=== PATIENT | female | born 1995 | race Caucasian/White ===

== ENCOUNTER 2016-05-18 13:25 | Emergency (ER) | payer OTHER ==
[2016-05-18 13:34] VITALS: BP 123/59; PULSE 90; TEMP 98; BMI 22.4
--- NOTE | 2016-05-18 16:35 | PDOC ---
History of Present Illness - General Chief Complaint: ,Possible Stated Complaint: ABD PAIN Time Seen by Provider: 05/18/16 16:09 History Source: Patient Exam Limitations: No Limitations - History of Present Illness Initial Comments: CHIEF COMPLAINT: 20 y/o afebrile female c/o lower abdominal cramping for the past few months. HISTORY OF PRESENT ILLNESS: The patient states her LMP was the beginning of march. Shortly after that she began having lower abdominal cramping that she describes as mild. She states she took a test at home which was positive but she is here to "make sure". She is . She denies f/c, n/v/d, CP, SOB, back pain, hematuria, dysuria, abnormal vaginal bleeding, abnormal vaginal discharge. She does not have an PAEDIATRIC SURGEON. Vital signs on arrival are within normal limits. REVIEW OF SYSTEMS: GENERAL/CONSTITUTIONAL: No fever/chills. No weakness. No weight change. HEAD, EYES, EARS, NOSE AND THROAT: No change in vision. No ear pain or discharge. No sore throat. CARDIOVASCULAR: No chest pain or shortness of breath. RESPIRATORY: No cough, wheezing, or hemoptysis. GASTROINTESTINAL: +mild abd cramping. No nausea, vomiting, diarrhea. GENITOURINARY: No dysuria, frequency, or change in urination. MUSCULOSKELETAL: No joint or muscle swelling or pain. No neck or back pain. SKIN: No rash or easy bruising. NEUROLOGIC: No headache, vertigo, loss of consciousness, or loss of sensation. PHYSICAL EXAM: GENERAL: The patient is awake, alert, and fully oriented, in no acute distress. HEAD: Normal with no signs of trauma. ENT: Pupils equal, round and reactive to light, extraocular movements intact, sclera anicteric, conjunctiva clear. Neck supple. LUNGS: Clear to auscultation bilaterally. Normal excursion. No respiratory distress or use of accessory muscles. CV: RRR, S1/S2, no MRG. Cap refill < 2 sec. ABDOMEN: Soft, non-distended, non-tender even to deep palpation, no hepatomegaly or splenomegaly, no masses. EXTREMITIES: Normal range of motion, no edema. NEUROLOGICAL: Normal speech, normal gait. CN II-XII grossly intact. PSYCH: Normal mood, normal affect. SKIN: Warm, dry, normal turgor, no rashes or lesions noted. Past History - Past Medical History Allergies/Adverse Reactions: Allergies Allergy/AdvReac Type Severity Reaction Status Date / Time sulfamethoxazole Allergy Verified 05/18/16 13:28 [From Bactrim] trimethoprim [From Bactrim] Allergy Verified 05/18/16 13:28 Home Medications: Ambulatory Orders Cephalexin Monohydrate [Keflex -] 500 mg PO BID #10 capsule 05/18/16 Cancer: Yes (all) Other medical history: denies - Immunization History Immunization Up to Date: Yes - Psycho/Social/Smoking Cessation Hx Anxiety: No Suicidal Ideation: No Smoking History: Former smoker Have you smoked in the past 12 months: Yes Information on smoking cessation initiated: No Hx Alcohol Use: No Drug/Substance Use Hx: No Substance Use Type: None *Physical Exam - Vital Signs Last Vital Signs Temp Pulse Resp BP Pulse Ox 98 F 90 20 123/59 98 05/18/16 13:30 05/18/16 13:30 05/18/16 13:30 05/18/16 13:30 05/18/16 13:30 Medical Decision Making - Medical Decision Making A/P: 20 y/o female here to confirm . Plan is as follows: 1. UA/hcg hcg - positive Bedside ultrasound performed. heart tones confirmed with HR = 164bpm UA shows 3+ leuks with 17 WBCs Will discharge to home with rx for keflex. Instructed pt to take entire course and f/u with Dr. Shrestha as soon as possible. Suggested she take vitamins daily and avoid smoking/drinking. The patient verbalizes understanding of all instructions, has no further questions and is awaiting discharge. *DC/Admit/Observation/Transfer Diagnosis at time of Disposition: UTI (urinary tract infection) Qualifiers: Weeks of gestation: unspecified Qualified Code(s): Z33.1 - state, incidental - Discharge Dispostion Disposition: HOME Condition at time of disposition: Good - Prescriptions Prescriptions: Cephalexin Monohydrate [Keflex -] 500 mg PO BID #10 capsule - Referrals Referrals: Venecia Shrestha MD [Staff Physician] - Call tomorrow - Patient Instructions Printed Discharge Instructions: Folic Acid Supplements May Decrease Risk of Severe Language Delay Additional Instructions: Discharge Instructions: -Take antibiotics as prescribed -Start taking daily vitamins -Call Dr. Shrestha tomorrow to schedule follow up appointment -Avoid smoking and drinking alcohol -Eat a healthy diet -Return to the ER with any worsening or concerning symptoms
[2016-05-18 17:39] LABS: URINE APPEARANCE SLCLOUDY; URINE BILIRUBIN NEGATIVE (NEGATIVE); URINE COLOR YELLOW; URINE GLUCOSE (UA) NEGATIVE (NEGATIVE); URINE KETONE NEGATIVE (NEGATIVE); URINE NITRITE NEGATIVE (NEGATIVE); URINE PROTEIN NEGATIVE (NEGATIVE); URINE UROBILINOGEN NEGATIVE E.U./dl (0.2-1.0)
--- NOTE | 2016-05-18 17:46 | PDOC ---
[id number] 98 05/18/16 13:30 05/18/16 13:30 05/18/16 13:30 05/18/16 13:30 05/18/16 13:30 Medical Decision Making - Medical Decision Making 05/18/16 17:45 Pt seen by the Advanced Practice Provider under my direct supervision Ancillary studies reviewed I agree with plan as outlined by the Advanced Practice Provider CHRISTIE Jade *DC/Admit/Observation/Transfer Diagnosis at time of Disposition: , UTI (urinary tract infection) - Discharge Dispostion Disposition: HOME Condition at time of disposition: Good - Prescriptions Prescriptions: Cephalexin Monohydrate [Keflex -] 500 mg PO BID #10 capsule - Referrals Referrals: Venecia Shrestha MD [Staff Physician] - Call tomorrow - Patient Instructions Printed Discharge Instructions: Folic Acid Supplements May Decrease Risk of Severe Language Delay Additional Instructions: Discharge Instructions: -Take antibiotics as prescribed -Start taking daily vitamins -Call Dr. Shrestha tomorrow to schedule follow up appointment -Avoid smoking and drinking alcohol -Eat a healthy diet -Return to the ER with any worsening or concerning symptoms - Post Discharge Activity
[2016-05-18 17:55] LABS: URINE BLOOD 1+ (NEGATIVE); URINE LEUK ESTERASE 3+ (NEGATIVE)
[2016-05-18 18:10] LABS: URINE BACTERIA RARE /hpf (NONE SEEN); URINE MUCUS FEW; URINE RBC 2 /hpf (0-3); URINE WBC 17 /hpf (3-5)
== END 2016-05-18 18:50 | disposition home or self-care (01) ==
LOC: JER 13:25
DX: O23.31 Infections of other parts of urinary tract in pregnancy, first trimester (principal); Z3A.00 Weeks of gestation of pregnancy not specified
CPT/HCPCS: 81003; 81015; 84703; 87086; 99282-25